=== PATIENT | female | born 1990 | race Caucasian/White ===

== ENCOUNTER → 2016-10-28 | Outpatient (CLI) | payer OTHER ==
[~2016-10-28] MED LIST: CLR10 PO; JNL12021 PO; MESA1.2T PO; MRC50 PO
== END | disposition home or self-care (01) ==
LOC: C.PAPS 14:33
PROVIDERS: ATTEND Obstetrics & Gynecology
DX: Z01.419 Encounter for gynecological examination (general) (routine) without abnormal findings (principal)

== ENCOUNTER 2016-11-26 15:38 | Emergency (ER) | payer OTHER ==
[~2016-11-26] VITALS: Ht 149.9 cm; Wt 70.9 kg
[2016-11-26 15:40] VITALS: TEMP 37; Ht 149.9 cm; Wt 70.9 kg
[2016-11-26] MEDS ORDERED: MESA1.2T PO (15:50)
[2016-11-26] MEDS ORDERED: JNL12021 PO (15:57)
[2016-11-26] MEDS ORDERED: MRC50 PO (16:03)
--- NOTE | 2016-11-26 16:58 | DIAGNOSTIC IMAGING REPORT ---
BILATERAL LOWER EXTREMITY VENOUS DOPPLER HISTORY: Pain. Edema. 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 FINDINGS: There is normal compressibility, flow, and augmentation within the bilateral lower extremity deep venous systems. IMPRESSION: No DVT within the right or left lower extremity. Electronically signed by: Christiano Euceda M.D. 11/26/2016 4:57 PM Dictated Date/Time: 11/26/2016 4:57 PM
[2016-11-26 17:24] VITALS: BP 138/89; PULSE 86; O2SAT 99
--- NOTE | 2016-11-26 18:33 | EMERGENCY ROOM VISIT NOTE ---
History First contact with patient: 15:45 Chief Complaint: CALF PAIN Stated Complaint: B/L CALF PAIN History of Present Illness The patient is a 26 year old female who presents to the Emergency Room with complaints of bilateral calf pain for the past one day. The patient does not recall a distinct injury or trauma to explain her symptoms. She recently started control for the first time, and is concerned that this may be causing her pain. She has not had fever or chills. No chest pain, chest tightness, or shortness of breath. No family history of DVT or PE. She has not taken anything [id number] for her symptoms. 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 Review of Systems More than 10 systems were reviewed and otherwise negative with the exception of history of present illness. Past Medical/Surgical History No pertinent chronic medical disease Family History No pertinent family history Social History Smoking Status: Never Smoker Occupation Status: employed Current/Historical Medications Scheduled Ethinyl Estradiol/Norethindr (June10/01), 1 TAB PO DAILY Mercaptopurine (Mercaptopurine), 12.5 TAB PO BID Mesalamine (Lialda), 4 TAB PO DAILY Allergies Coded Allergies: Polyethylene Glycol (Unverified Allergy, Intermediate, hives, rash, ) Physical Exam Vital Signs Date Time Temp Pulse Resp B/P Pulse Ox O2 Delivery O2 Flow Rate FiO2 11/26/16 17:24 86 16 138/89 99 Room Air 11/26/16 15:40 37.0 90 18 163/103 100 Room Air Pain Rating (0-10): 2.0 Physical Exam VITALS: Vitals are noted on the nurse's note and reviewed by myself. Vital signs stable. GENERAL: Well-developed, well-nourished, white female, who is in no acute distress and resting comfortably. Patient is cooperative with the examination. HEAD: Normocephalic atraumatic. HEART: Regular rate and rhythm without murmurs gallops or rubs. LUNGS: Clear to auscultation bilaterally without wheezes, rales or rhonchi. No retractions or accessory muscle use. MUSCULOSKELETAL: No muscle atrophy, erythema, or edema noted. Tenderness appreciated throughout the bilateral calves without palpable cord. Neurovascular status is intact the distal extremities. NEURO: Patient was alert and oriented to person place and time. CN II through XII grossly intact. Medical Decision & Procedures ER Provider Diagnostic Interpretation: BILATERAL LOWER EXTREMITY VENOUS DOPPLER HISTORY: Pain. Edema. 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 FINDINGS: There is normal compressibility, flow, and augmentation within the bilateral lower extremity deep venous systems. IMPRESSION: No DVT within the right or left lower extremity. ED Course Physical exam and history were performed. Nursing notes and EMR were reviewed. Patient appears to have bilateral calf pain after starting control. On examination the patient does not appear in respiratory distress. I discussed options of care, and elected to ultrasound the patient's legs. Ultrasound does not show evidence of acute DVT. I do not suspect a PE. The patient's symptoms may be medication related or possibly musculoskeletal. I encouraged conservative care and asked her to follow with her PCP/[facility] for further care and management. The patient was otherwise invited back to the ER with any new, worsening, or concerning symptoms. The chart was completed utilizing [employer] Speech Voice Recognition Software. Grammatical errors, random word insertions, pronoun errors, and incomplete sentences are an occasional consequence of this system due to software limitations, ambient noise, and hardware issues. Any formal questions or concerns about the content, text, or information contained within the body of this dictation should be directly addressed to the provider for clarification. . Medical Decision Differential diagnosis: Etiologies such as DVT, musculoskeletal, infection, joint effusion, trauma, lymphedema, idiopathic, CHF, as well as others were entertained.. Impression Primary Impression: Bilateral calf pain Departure Information Dispostion Home / Self-Care Condition GOOD Referrals Martínez Caruso M.D. (PCP) Forms HOME CARE DOCUMENTATION FORM, IMPORTANT VISIT INFORMATION Patient Instructions My [facility] Additional Instructions You were seen and evaluated today on an emergency basis only. This is not a substitute for, or an effort to provide, complete comprehensive medical care. It is not possible to recognize and treat all injuries or illnesses in a single emergency department visit. For this reason it is recommended that you followup with your primary care physician or [facility] for ongoing care and evaluation. For baseline pain relief you may alternate ibuprofen and acetaminophen every 4 hours for pain control. Take 600 mg ibuprofen (Advil) and then 4 hours later take 1000 mg acetaminophen (Tylenol). Do not take more than 3000 mg acetaminophen in a single day. You are welcome to return to the emergency department anytime with new, worsening, or concerning symptoms.
== END 2016-11-26 17:26 | disposition home or self-care (01) ==
LOC: C.EDB 15:39 → C.EDD 17:26
DX: M79.661 Pain in right lower leg (principal); M79.662 Pain in left lower leg; Z79.3 Long term (current) use of hormonal contraceptives; Z79.899 Other long term (current) drug therapy

== ENCOUNTER 2016-11-28 13:28 | Emergency (ER) | payer OTHER ==
[~2016-11-28] VITALS: Ht 149.9 cm; Wt 70.4 kg
[~2016-11-28 13:28] MED LIST changes: -CLR10 PO
[2016-11-28 13:35] VITALS: Ht 149.9 cm; Wt 70.4 kg
[2016-11-28] MEDS ORDERED: CLR10 PO (15:50)
[2016-11-28] MEDS ORDERED: KETOROLAC TROMETHAMINE 30 MG/ML VIAL IV STA (15:50)
[2016-11-28] MEDS ORDERED: SODIUM CHLORIDE 0.9% 500ML 500 ML IV STA (15:50)
[2016-11-28 16:00] LABS: BASO % 0.6 %; BASO ABS # 0.04 K/uL (0-0.2); COMPLETE YES; EOS % 6.1 %; HEMATOCRIT 44.4 % (37-47); IG% 0.3 %; LYMPH % 22.8 %; LYMPH ABS # 1.61 K/uL (1.2-3.4); MEAN CELL VOLUME 91.9 fL (80-100); MEAN CORPUSCULAR HEMOGLOBIN 31.9 pg (25-34); MEAN CORPUSCULAR HGB CONC 34.7 g/dl (32-36); MEAN PLATELET VOLUME 9.2 fL (7.4-10.4); NEUT % 59.2 %; PLATELET COUNT 494 K/uL (130-400); RED BLOOD COUNT 4.83 M/uL (4.2-5.4); WHITE BLOOD COUNT 7.06 K/uL (4.8-10.8)
[2016-11-28 16:16] LABS: BLOOD UREA NITROGEN 12 mg/dl (7-18); BUN/CREATININE RATIO 17.2 (10-20); CARBON DIOXIDE 27 mmol/L (21-32); CHLORIDE 105 mmol/L (98-107); CREATININE 0.67 mg/dl (0.60-1.20); GLUCOSE 89 mg/dl (70-99); POTASSIUM 3.6 mmol/L (3.5-5.1); SODIUM 140 mmol/L (136-145)
--- NOTE | 2016-11-28 16:20 | DIAGNOSTIC IMAGING REPORT ---
CHEST ONE VIEW PORTABLE CLINICAL HISTORY: Chest Pain dyspnea COMPARISON STUDY: No previous studies for comparison. FINDINGS: The bones soft tissues and hemidiaphragms are normal. The cardiomediastinal silhouette is normal. The lungs are clear. The pulmonary vasculature is normal. IMPRESSION: Negative chest. Electronically signed by: Christiano Euceda M.D. 11/28/2016 4:19 PM Dictated Date/Time: 11/28/2016 4:19 PM
--- NOTE | 2016-11-28 18:38 | EMERGENCY ROOM VISIT NOTE ---
History Report prepared by Fifi: Oliver Carbajal Under the Supervision of: Dr. Tae Espinoza D.O. First contact with patient: 15:37 Chief Complaint: CHEST PAIN Stated Complaint: MILD CHEST PAIN Nursing Triage Summary: pt c/o chets pain started at 1100 this am. denies any n/v History of Present Illness The patient is a 26 year old female who presents to the Emergency Room with complaints of mid sternal chest pain that began 5 hours ago. She rates her current pain a 2/10 in severity. The patient has never experienced this pain before. She states that it is an ache and that nothing makes it better or worse. She denies any past medical history. She did start control recently , but she experienced calf pain secondary to her medication. Her ultrasound showed no abnormality. She stopped her control a couple of days ago. Patient was only on control for 5 days. Patient denies headache, change in vision, fevers, shortness of breath, nausea, vomiting, diarrhea, pain with urination, and melena. Patient has no history of diabetes, hypertension, hyperlipidemia, CAD or sudden in her family at a young age. She also denies any swelling of her calves, recent surgery, hemoptysis, long trips, previous blood clots or smoking. She does admit to 5 days worth of control. Source of History: patient Onset: 5 hours ago Position: chest Symptom Intensity: 2/10 Quality: ache Timing: constant Modifying Factors (Worsening): other (nothing) Modifying Factors (Relieving): other (nothing) Associated Symptoms: No SOB, No abdominal pain, No back pain, No chills, No cough, No diarrhea, No fevers, No headache, No hematochezia, No melena, No nausea, No sorethroat, No urinary symptoms, No vomiting Review of Systems See HPI for pertinent positives & negatives. A total of 10 systems reviewed and were otherwise negative. Family History Patient reports no known family medical history. Social History Smoking Status: Never Smoker Smokeless Tobacco Use: No Drug Use: none Marital Status: single Occupation Status: employed Current/Historical Medications Scheduled Loratadine (Claritin), 10 MG PO DAILY Mercaptopurine (Mercaptopurine), 25 MG PO DAILY Mesalamine (Lialda), 4.8 GM PO DAILY Allergies Coded Allergies: Polyethylene Glycol (Unverified Allergy, Intermediate, hives, rash, 3/17/ 17) Physical Exam Vital Signs Date Time Temp Pulse Resp B/P Pulse Ox O2 Delivery O2 Flow Rate FiO2 11/28/16 17:48 77 16 102/72 97 Room Air 11/28/16 16:27 84 16 142/95 97 Room Air 11/28/16 16:11 84 11/28/16 15:50 84 16 130/89 94 Room Air 11/28/16 13:35 36.6 84 18 145/88 100 Room Air Physical Exam GENERAL: Sitting up in bed, alert, well appearing, well nourished, no distress, non-toxic EYE EXAM: normal conjunctiva OROPHARYNX: no exudate, no erythema, lips, buccal mucosa, and tongue normal and mucous membranes are moist NECK: supple, no nuchal rigidity, no adenopathy, non-tender LUNGS: Clear to auscultation. Normal chest wall mechanics HEART: no murmurs, S1 normal and S2 normal CHEST: No reproducible chest wall pain ABDOMEN: abdomen soft, non-tender, normo-active bowel sounds, no masses, no rebound or guarding. BACK: Back is symmetrical on inspection and there is no deformity, no midline tenderness, no CVA tenderness. SKIN: no rashes and no bruising UPPER EXTREMITIES: upper extremities are grossly normal. Radial pulses equal bilaterally. LOWER EXTREMITIES: No pitting edema. Calves equal bilaterally. NEURO EXAM: Normal sensorium, cranial nerves II-XII grossly intact, normal speech, no gross weakness of arms, no gross weakness of legs. Medical Decision & Procedures ER Provider Diagnostic Interpretation: Xray results per the radiologist and my interpretation. Other results have been interpreted by the radiologist and reviewed by me. CHEST ONE VIEW PORTABLE CLINICAL HISTORY: Chest Pain dyspnea COMPARISON STUDY: No previous studies for comparison. FINDINGS: The bones soft tissues and hemidiaphragms are normal. The cardiomediastinal silhouette is normal. The lungs are clear. The pulmonary vasculature is normal. IMPRESSION: Negative chest. Electronically signed by: Christiano Euceda M.D. 11/28/2016 4:19 PM Dictated Date/Time: 11/28/2016 4:19 PM Laboratory Results 11/28/16 15:46 Red Blood Count 4.83, Mean Corpuscular Volume 91.9, Mean Corpuscular Hemoglobin 31.9, Mean Corpuscular Hemoglobin Concent 34.7, Mean Platelet Volume 9.2, Neutrophils (%) (Auto) 59.2, Lymphocytes (%) (Auto) 22.8, Monocytes (%) (Auto) 11.0, Eosinophils (%) (Auto) 6.1, Basophils (%) (Auto) 0.6, Neutrophils # (Auto ) 4.18, Lymphocytes # (Auto) 1.61, Monocytes # (Auto) 0.78, Eosinophils # (Auto ) 0.43, Basophils # (Auto) 0.04 11/28/16 15:46 Test 11/28/16 15:46 11/28/16 17:40 White Blood Count 7.06 K/uL (4.8-10.8) Red Blood Count 4.83 M/uL (4.2-5.4) Hemoglobin 15.4 g/dL (12.0-16.0) Hematocrit 44.4 % (37-47) Mean Corpuscular Volume 91.9 fL (80-100) Mean Corpuscular Hemoglobin 31.9 pg (25-34) Mean Corpuscular Hemoglobin Concent 34.7 g/dl (32-36) Platelet Count 494 K/uL (130-400) Mean Platelet Volume 9.2 fL (7.4-10.4) Neutrophils (%) (Auto) 59.2 % Lymphocytes (%) (Auto) 22.8 % Monocytes (%) (Auto) 11.0 % Eosinophils (%) (Auto) 6.1 % Basophils (%) (Auto) 0.6 % Neutrophils # (Auto) 4.18 K/uL (1.4-6.5) Lymphocytes # (Auto) 1.61 K/uL (1.2-3.4) Monocytes # (Auto) 0.78 K/uL (0.11-0.59) Eosinophils # (Auto) 0.43 K/uL (0-0.5) Basophils # (Auto) 0.04 K/uL (0-0.2) RDW Standard Deviation 45.0 fL (36.4-46.3) RDW Coefficient of Variation 13.3 % (11.5-14.5) Immature Granulocyte % (Auto) 0.3 % Immature Granulocyte # (Auto) 0.02 K/uL (0.00-0.02) D-Dimer 270 ug/L FEU (0-500) Anion Gap 8.0 mmol/L (3-11) Est Creatinine Clear Calc Drug Dose 110.6 ml/min Estimated GFR () 142.6 Estimated GFR (Non- 123.0 BUN/Creatinine Ratio 17.2 (10-20) Calcium Level 9.0 mg/dl (8.5-10.1) Total Creatine Kinase 65 U/L (26-192) Creatine Kinase MB < 0.5 ng/ml (0.5-3.6) Creatine Kinase MB Ratio (0-3.0) Troponin I < 0.015 ng/ml (0-0.045) Laboratory results per my review. Medications Administered Medications (Trade) Dose Ordered Sig/Treva Route Start Time Stop Time Status Last Admin Dose Admin Sodium Chloride (Nss 500ml) 500 ml @ 999 mls/hr Q31M STAT IV 11/28/16 15:50 11/28/16 16:20 DC 11/28/16 15:50 999 MLS/HR Ketorolac Tromethamine (Toradol Inj) 30 mg NOW STAT IV 11/28/16 15:50 11/28/16 15:51 DC 11/28/16 15:59 30 MG ECG Indication: chest pain Rate (beats per minute): 74 Rhythm: sinus rhythm Findings: no ectopy, other (normal axis) ED Course ED COURSE: Vital signs were reviewed and showed nothing abnormal. The patients medical record was reviewed The above diagnostic studies were performed and reviewed. ED treatments and interventions as stated above. 1537: The patient was evaluated in room A12. A complete history and physical examination was performed. 1550: Toradol Inj 30 mg IV, Sodium Chloride 500 ml @ 999 mls/hr IV 1707: The patient states that she is feeling better. 1825: Upon reevaluation, the patient is resting. I discussed my findings with the patient and she understands and agrees with the treatment plan. The patient remained stable while under my care. The patient appeared well at the time of discharge. Medical Decision Differential diagnoses includes but is not limited to acute coronary syndrome, myocardial infarction, pericarditis, pulmonary embolus, aortic dissection, pneumonia, pneumothorax, musculoskeletal, shingles, esophageal. Patient is a 26-year-old female who presents the ER for midsternal chest pain without radiation. She notes it started around 11 today. Labs show no significant leukocytosis or anemia. BMP along with troponin 2 are negative. D -dimer was negative. Patient was given small dose of Toradol had resolution of her symptoms. She is no cardiac risk factors. She is very low risk for PE and with a negative d-dimer this is not pursued any further. Symptoms are not suggestive of a pericarditis as they don't change. It is not related to eating or drinking. This does not appear to be occurred. No upper respiratory symptoms. Uncertain of the true etiology of her symptoms at this time. Patient and father were updated at bedside. Discussed with Pt concerning signs and symptoms to watch out for. Pt was instructed to follow up with their PCP and discussed with the patient their option to return to the ED at anytime for persistent or worsening symptoms. The appropriate anticipatory guidance and out- patient management, including indications for return to the emergency department , were explained at length to the patient and understood. Impression Primary Impression: Precordial chest pain Scribe Attestation The scribe's documentation has been prepared under my direction and personally reviewed by me in its entirety. I confirm that the note above accurately reflects all work, treatment, procedures, and medical decision making performed by me. Departure Information Dispostion Home / Self-Care Referrals Martínez Caruso M.D. (PCP) Forms HOME CARE DOCUMENTATION FORM, IMPORTANT VISIT INFORMATION Patient Instructions ED Chest Pain Atypical Unkn Cause, My [facility] Additional Instructions Please follow up with your primary care doctor with in the next 24 hours. Any worsening of your symptoms, please return to the ED immediately. This includes worsening chest pain, shortness of breath, passing out, fevers greater than 100.4, or any other concerning signs or symptoms from your standpoint.
[2016-11-28 18:42] VITALS: BP 128/84; PULSE 80; O2SAT 99
== END 2016-11-28 18:51 | disposition home or self-care (01) ==
LOC: C.EDB 13:30 → C.EDA 18:51
DX: R07.2 Precordial pain (principal)